=== PATIENT | male | born 1945 | race Caucasian/White ===

== ENCOUNTER 2022-05-29 14:41 | Observation (INO) | payer MEDICARE, OTHER ==
[2022-05-29] MEDS ORDERED: SODIUM CHLORIDE 0.9% 1,000 ML IV STA (14:51)
--- NOTE | 2022-05-29 15:11 | ED ---
Syncope HPI - General Chief Complaint: Syncope Stated Complaint: FAll Time Seen by Provider: 05/29/22 14:45 Source: patient, EMS, RN notes reviewed Mode of arrival: EMS Limitations: no limitations - History of Present Illness Initial Comments: This is a 77-year-old male who presents to the emergency department for a syncopal episode. He was sitting at the table drinking coffee with his family, and next thing he knew he was on the ground. Unsure how long he was unconscious. He is unsure if he hit his head, however he is on Eliquis for atrial fibrillation. He also had a stent placed in the LAD in 2013 which was done at [facility]. His glue maker is Dr. Hogan at [facility]. Denies any symptoms before or after the fall. Not currently in any pain and he feels like his normal self. Denies any fevers, chills, sore throat, cough, dyspnea, chest pain, palpitations, abdominal pain, nausea, vomiting, diarrhea, back pain, or headaches. MD Complaint: loss of consciousness Prodromal Symptoms: none Witnessed: yes - by bystander - Related Data Home Medications Medication Instructions Recorded Confirmed Alpha Lipoic Acid 50 mg PO DAILY 05/29/22 05/29/22 Apixaban [Eliquis] 5 mg PO BID 05/29/22 05/29/22 Atorvastatin Calcium [Lipitor] 80 mg PO HS 05/29/22 05/29/22 Cholecalciferol [Vitamin D3 (25 25 mcg PO DAILY 05/29/22 05/29/22 Mcg = 1000 Iu)] Cyanocobalamin (Vitamin B-12) 1,000 mcg PO DAILY 05/29/22 05/29/22 [Vitamin B-12] Empagliflozin [Jardiance] 10 mg PO DAILY 05/29/22 05/29/22 Ferrous Sulfate [Feosol] 325 mg PO BID 05/29/22 05/29/22 Potassium Chloride ER [K-Dur 10] 10 meq PO DAILY 05/29/22 05/29/22 Tamsulosin HCl [Flomax] 0.4 mg PO DAILY 05/29/22 05/29/22 glipiZIDE [Glucotrol] 5 mg PO DAILY 05/29/22 05/29/22 hydroCHLOROthiazide [Hydrodiuril] 25 mg PO DAILY 05/29/22 05/29/22 lisinopriL [Zestril] 40 mg PO DAILY 05/29/22 05/29/22 metFORMIN HCL [Glucophage] 1,000 mg PO BID 05/29/22 05/29/22 Allergies Allergy/AdvReac Type Severity Reaction Status Date / Time No Known Allergies Allergy Verified 05/29/22 17:27 Review of Systems ROS Statement: Those systems with pertinent positive or pertinent negative responses have been documented in the HPI. ROS Other: All systems not noted in ROS Statement are negative. Past Medical History Past Medical History: Atrial Fibrillation, Heart Failure, Diabetes Mellitus, Hypertension History of Any Multi-Drug Resistant Organisms: None Reported Past Surgical History: No Surgical Hx Reported, Heart Catheterization With Stent Past Psychological History: Anxiety Smoking Status: Never smoker Past Alcohol Use History: Occasional Past Drug Use History: None Reported General Exam Limitations: no limitations General appearance: alert, in no apparent distress Head exam: Present: atraumatic, normocephalic, normal inspection Eye exam: Present: normal appearance, PERRL, EOMI. Absent: scleral icterus, conjunctival injection, periorbital swelling Neck exam: Present: normal inspection. Absent: tenderness, meningismus, lymphadenopathy Respiratory exam: Present: normal lung sounds bilaterally. Absent: respiratory distress, wheezes, rales, rhonchi, stridor Cardiovascular Exam: Present: irregular rhythm. Absent: systolic murmur, diastolic murmur, rubs, gallop, clicks Neurological exam: Present: alert, oriented X3, CN II-XII intact Psychiatric exam: Present: normal affect, normal mood Skin exam: Present: warm, dry, intact, normal color. Absent: rash Course Vital Signs 05/29/22 05/29/22 14:58 17:27 Temperature 98.2 F Pulse Rate 61 61 Respiratory 18 18 Rate Blood Pressure 148/77 157/87 O2 Sat by Pulse 99 99 Oximetry EKG Findings - EKG Comments: EKG Findings:: Atrial fibrillation with slow ventricular response. Right bundle-branch block. Ventricular rate 52 bpm, QRS duration 149 ms, QTC 451 ms. Medical Decision Making - Medical Decision Making This is a 77-year-old male who presents to the emergency department for a syncopal episode. CT scan of the brain and cervical spine were obtained, revealing no acute irregularities. Chest x-ray reveals no acute cardiopulmonary process. Lab work was relatively nonactionable, he does have a troponin of 0.014. EKG reveals him to be in atrial fibrillation with slow ventricular response. Dr. Majano evaluated the patient with me and we watched his shelter monitor for a sustained period of time. Patient was noted to have very frequent PVCs with pauses, which we discussed was likely the cause of his syncopal episode. Patient will be admitted to medicine with cardiology consult for further evaluation of his cardiac activity. This case was discussed in detail with the attending ED physician. Presentation, findings, and treatment plan discussed in detail as well. - Lab Data Result diagrams: 05/29/22 15:16 05/29/22 15:16 Lab Results 05/29/22 05/29/22 05/29/22 Range/Units 15:16 15:16 15:16 WBC 8.1 (3.8-10.6) k/uL RBC 5.74 (4.30-5.90) m/uL Hgb 11.8 L (13.0-17.5) gm/dL Hct 39.1 (39.0-53.0) % MCV 68.1 L (80.0-100.0) fL MCH 20.6 L (25.0-35.0) pg MCHC 30.3 L (31.0-37.0) g/dL RDW 18.1 H (11.5-15.5) % Plt Count 210 (150-450) k/uL MPV 9.3 Neutrophils % 82 % Lymphocytes % 10 % Monocytes % 5 % Eosinophils % 1 % Basophils % 1 % Neutrophils # 6.6 (1.3-7.7) k/uL Lymphocytes # 0.8 L (1.0-4.8) k/uL Monocytes # 0.4 (0-1.0) k/uL Eosinophils # 0.1 (0-0.7) k/uL Basophils # 0.1 (0-0.2) k/uL Hypochromasia Marked Anisocytosis Slight Microcytosis Marked PT 11.7 (9.0-12.0) sec INR 1.1 (<1.2) APTT 24.7 (22.0-30.0) sec Sodium 139 (137-145) mmol/L Potassium 4.1 (3.5-5.1) mmol/L Chloride 103 (98-107) mmol/L Carbon Dioxide 22 (22-30) mmol/L Anion Gap 14 mmol/L BUN 23 H (9-20) mg/dL Creatinine 0.82 (0.66-1.25) mg/dL Est GFR (CKD-EPI)AfAm >90 (>60 ml/min/1.73 sqM) Est GFR (CKD-EPI)NonAf 87 (>60 ml/min/1.73 sqM) Glucose 160 H (74-99) mg/dL Calcium 9.1 (8.4-10.2) mg/dL Magnesium 1.9 (1.6-2.3) mg/dL Total Bilirubin 1.1 (0.2-1.3) mg/dL AST 36 (17-59) U/L ALT 23 (4-49) U/L Alkaline Phosphatase 82 (38-126) U/L Troponin I (0.000-0.034) ng/mL Total Protein 7.8 (6.3-8.2) g/dL Albumin 4.5 (3.5-5.0) g/dL Urine Color Urine Appearance (Clear) Urine pH (5.0-8.0) Ur Specific [place] (1.001-1.035) Urine Protein (Negative) Urine Glucose (UA) (Negative) Urine Ketones (Negative) Urine Blood (Negative) Urine Nitrite (Negative) Urine Bilirubin (Negative) Urine Urobilinogen (<2.0) mg/dL Ur Leukocyte Esterase (Negative) Urine RBC (0-5) /hpf Urine WBC (0-5) /hpf Ur Squamous Epith Cells (0-4) /hpf Amorphous Sediment (None) /hpf Hyaline Casts (0-2) /lpf Urine Mucus (None) /hpf 05/29/22 05/29/22 Range/Units 15:16 17:10 WBC (3.8-10.6) k/uL RBC (4.30-5.90) m/uL Hgb (13.0-17.5) gm/dL Hct (39.0-53.0) % MCV (80.0-100.0) fL MCH (25.0-35.0) pg MCHC (31.0-37.0) g/dL RDW (11.5-15.5) % Plt Count (150-450) k/uL MPV Neutrophils % % Lymphocytes % % Monocytes % % Eosinophils % % Basophils % % Neutrophils # (1.3-7.7) k/uL Lymphocytes # (1.0-4.8) k/uL Monocytes # (0-1.0) k/uL Eosinophils # (0-0.7) k/uL Basophils # (0-0.2) k/uL Hypochromasia Anisocytosis Microcytosis PT (9.0-12.0) sec INR (<1.2) APTT (22.0-30.0) sec Sodium (137-145) mmol/L Potassium (3.5-5.1) mmol/L Chloride (98-107) mmol/L Carbon Dioxide (22-30) mmol/L Anion Gap mmol/L BUN (9-20) mg/dL Creatinine (0.66-1.25) mg/dL Est GFR (CKD-EPI)AfAm (>60 ml/min/1.73 sqM) Est GFR (CKD-EPI)NonAf (>60 ml/min/1.73 sqM) Glucose (74-99) mg/dL Calcium (8.4-10.2) mg/dL Magnesium (1.6-2.3) mg/dL Total Bilirubin (0.2-1.3) mg/dL AST (17-59) U/L ALT (4-49) U/L Alkaline Phosphatase (38-126) U/L Troponin I 0.014 (0.000-0.034) ng/mL Total Protein (6.3-8.2) g/dL Albumin (3.5-5.0) g/dL Urine Color Yellow Urine Appearance Cloudy (Clear) Urine pH 6.0 (5.0-8.0) Ur Specific [place] 1.017 (1.001-1.035) Urine Protein Negative (Negative) Urine Glucose (UA) 4+ H (Negative) Urine Ketones Negative (Negative) Urine Blood Negative (Negative) Urine Nitrite Positive (Negative) Urine Bilirubin Negative (Negative) Urine Urobilinogen <2.0 (<2.0) mg/dL Ur Leukocyte Esterase Trace H (Negative) Urine RBC 2 (0-5) /hpf Urine WBC 10 H (0-5) /hpf Ur Squamous Epith Cells <1 (0-4) /hpf Amorphous Sediment Rare H (None) /hpf Hyaline Casts 7 H (0-2) /lpf Urine Mucus Rare H (None) /hpf - Radiology Data Radiology results: report reviewed, image reviewed Disposition Clinical Impression: Syncope, Atrial fibrillation with slow ventricular response, PVC (premature ventricular contraction) Disposition: ADMITTED IP TO THIS HOSP Referrals: Alejandra Esteves MD [Primary Care Provider] - 1-2 days
[2022-05-29 15:34] LABS: Anisocytosis Slight; Basophils # (A) 0.1 k/uL (0-0.2); Basophils % (A) 1 %; Eosinophils # (A) 0.1 k/uL (0-0.7); Eosinophils % (A) 1 %; HCT 39.1 % (39.0-53.0); HGB 11.8 gm/dL (13.0-17.5); Hypochromasia Marked; Lymphocytes # (A) 0.8 k/uL (1.0-4.8); Lymphocytes % (A) 10 %; MCH 20.6 pg (25.0-35.0); MCHC 30.3 g/dL (31.0-37.0); MCV 68.1 fL (80.0-100.0); Mean Platelet Volume 9.3; Microcytosis Marked; Monocytes # (A) 0.4 k/uL (0-1.0); Monocytes % (A) 5 %; Neutrophils # (A) 6.6 k/uL (1.3-7.7); Neutrophils % (A) 82 %; Platelet Count 210 k/uL (150-450); RBC 5.74 m/uL (4.30-5.90); RDW 18.1 % (11.5-15.5); WBC 8.1 k/uL (3.8-10.6)
[2022-05-29 15:47] LABS: ALT 23 U/L (4-49); AST 36 U/L (17-59); African American GFR (CKD) >90 (>60 ml/min/1.73 sqM); Albumin 4.5 g/dL (3.5-5.0); Alkaline Phosphatase 82 U/L (38-126); Anion Gap 14 mmol/L; Blood Urea Nitrogen 23 mg/dL (9-20); Calcium 9.1 mg/dL (8.4-10.2); Carbon Dioxide 22 mmol/L (22-30); Chloride 103 mmol/L (98-107); Glucose 160 mg/dL (74-99); INR 1.1 (<1.2); Magnesium 1.9 mg/dL (1.6-2.3); Non-African American GFR(CKD) 87 (>60 ml/min/1.73 sqM); Partial Thromboplastin Time 24.7 sec (22.0-30.0); Potassium 4.1 mmol/L (3.5-5.1); Prothrombin Time 11.7 sec (9.0-12.0); Sodium 139 mmol/L (137-145); Total Bilirubin 1.1 mg/dL (0.2-1.3); Total Protein 7.8 g/dL (6.3-8.2)
--- NOTE | 2022-05-29 16:08 | CT ---
EXAMINATION TYPE: CT brain kristi conway con DATE OF EXAM: 05/29/2022 COMPARISON: None HISTORY: Syncope with fall CT DLP: 1551 mGycm Automated exposure control for dose reduction was used. TECHNIQUE: CT scan of the head and cervical spine are performed without contrast. FINDINGS: There is no acute intracranial hemorrhage, mass effect, or midline shift identified. Ther e is generalized moderate degenerative change with extensive low attenuation in the white matter whic h is not cystic but most typical remote white matter ischemia. Calvarium grossly intact. Carotid coco ry calcifications are incidentally noted soft tissues. The globes are intact and the visualized sinus es are clear. There is severe multilevel degenerative disc disease and posterior spondylosis with facet arthropathy and multilevel foraminal encroachment and canal stenosis suspected. Assessment spinal canal nondiagn ostic due to resolution and artifact. Grossly odontoid intact. IMPRESSION: 1. There is no acute fracture or dislocation evident in the cervical spine. Severe multilevel degener ative disc disease with posterior spondylosis and facet arthropathy. Multilevel foraminal encroachmen t and canal stenosis suspected. Recommend follow-up MRI 2. No acute intracranial hemorrhage, mass effect, or midline shift is seen. Degenerative and diffuse nonspecific white matter changes most typical remote microvascular ischemia.
--- NOTE | 2022-05-29 16:08 | XR ---
EXAMINATION TYPE: XR chest 2V DATE OF EXAM: 05/29/2022 COMPARISON: NONE HISTORY: Syncope TECHNIQUE: Frontal and lateral views of the chest are obtained. FINDINGS: There is no focal air space opacity, pleural effusion, or pneumothorax seen. The cardiac silhouette size is within normal limits. There are overlying leads. The osseous structures are intac t. The may be a spinal curvature. Aorta is dense. IMPRESSION: No acute cardiopulmonary process.
[2022-05-29 17:37] LABS: Amorphous Sediment,Urine Rare /hpf; Appearance,Urine Cloudy (Clear); Bilirubin,Urine Negative (Negative); Blood,Urine Negative (Negative); Color,Urine Yellow; Glucose,Urine (UA) 4+ (Negative); Hyaline Casts,Urine 7 /lpf (0-2); Ketones,Urine Negative (Negative); Leukocyte Esterase,Urine Trace (Negative); Mucus,Urine Rare /hpf; Nitrite,Urine Positive (Negative); Protein,Urine Negative (Negative); RBC,Urine 2 /hpf (0-5); Specific Gravity,Urine 1.017 (1.001-1.035); Squamous Epithelial Cell,Urine <1 /hpf (0-4); Urobilinogen,Urine <2.0 mg/dL (<2.0); WBC,Urine 10 /hpf (0-5)
[2022-05-29] MEDS ORDERED: ACETAMINOPHEN TAB 325 MG TAB PO PRN (17:40)
[2022-05-29] MEDS ORDERED: NALOXONE 0.4 MG/ML 1 ML VIAL IV PRN (17:40)
[2022-05-29] MEDS ORDERED: HYDROcodone/APAP 5-325MG 1 EACH TAB PO PRN (17:40)
[2022-05-29] MEDS ORDERED: ONDANSETRON 4 MG/2 ML VIAL IVP PRN (17:40)
[2022-05-29] MEDS: ATORVASTATIN 80 MG TAB PO SCH (20:46)
[2022-05-29] MEDS: FERROUS SULFATE 325 MG TAB PO SCH (20:46)
[2022-05-29] MEDS: APIXABAN 5 MG TAB PO SCH (20:46)
--- NOTE | 2022-05-29 23:41 | P.HPIM ---
History of Present Illness H&P Date: 05/29/22 The patient is a 77-year-old male with a PMH of A. fib on Eliquis, type II DM, hypertension, hyperlipidemia, and BPH who presented to the emergency room after an episode of syncope at home. The patient reports that he was on his dining table sitting with his family when he suddenly lost consciousness without any warning symptoms. THEREFORE his brother and [id number] noticed that she had lost consciousness and subsequently laid him down gently on the ground. The patient was reportedly unconscious for a few minutes, and was pale upon arrival of EMS. The patient denied any prior history of such symptoms. Denied experiencing any prodrome of chest discomfort, shortness of breath, or palpitations. Denied shaking movements, urinary incontinence, or tongue biting. Reported feeling somewhat tired upon regaining consciousness. Reports that he is back at his baseline at the time of interview. Denied experiencing fever, chills, cough, nausea, vomiting, abdominal pain, diarrhea. Head and cervical spine CT in the emergency room revealed multilevel foraminal encroachment and canal stenosis with a follow-up MRI recommended. Chest x-ray was unremarkable. EKG revealed A. fib with SVR at 52 bpm with a right bundle branch block. Laboratory evaluation was remarkable for troponin 0.014. The patient was noted to have pauses and frequent PVCs on telemetric monitoring in the emergency room. Review of systems: Pertinent positives and negatives as discussed in HPI, a complete review of systems was performed and all other systems are negative. Physical examination: General: non toxic, no distress, appears at stated age, overweight Derm: no unusual rashes/lesions, warm Head: atraumatic, normocephalic, symmetric Eyes: EOMI, no lid lag, anicteric sclera, pupils equal round reactive to light ENT: Nose and ears atraumatic Neck: No cervical lymphadenopathy, trachea midline, supple Mouth: no lip lesion, mucus membranes moist Cardiovascular: S1S2 reg, no murmur, positive dorsalis pedis pulse bilateral, no edema Lungs: CTA bilateral, no rhonchi, no rales, no accessory muscle use Abdominal: soft, nontender to palpation, no guarding Ext: muscle strength 5 out of 5 in all 4 extremities grossly, no gross muscle atrophy, no contractures, Neuro: CN II-XI grossly intact, no gross focal neuro deficits Psych: Alert, oriented, appropriate affect Assessment/plan Syncope, suspected cardiogenic in nature with A. fib with SVR and pauses -Echocardiogram -Cardiac monitoring -Cardiology consult -Fall precautions Abnormal C-spine CT scan, with foraminal encroachment -Patient currently denying upper extremity pain or weakness -Outpatient orthopedic surgery follow-up with MRI Type II DM, hypertension, A. fib, hyperlipidemia, BPH -Continue with home meds DVT prophylaxis -Eliquis The patient is admitted with an anticipated less than 2 midnight stay for flip luation of syncope. CODE STATUS: Full Code Discussed with: Patient Anticipated discharge date: In a.m. Anticipated discharge place: Home Past Medical History Past Medical History: Atrial Fibrillation, Heart Failure, Diabetes Mellitus, Hypertension History of Any Multi-Drug Resistant Organisms: None Reported Past Surgical History: No Surgical Hx Reported, Heart Catheterization With Stent Past Psychological History: Anxiety Smoking Status: Never smoker Past Alcohol Use History: Occasional Past Drug Use History: None Reported - Past Family History Mother Family Medical History: Cancer Medications and Allergies Home Medications Medication Instructions Recorded Confirmed Type Alpha Lipoic Acid 50 mg PO DAILY 05/29/22 05/29/22 History Apixaban [Eliquis] 5 mg PO BID 05/29/22 05/29/22 History Atorvastatin Calcium [Lipitor] 80 mg PO HS 05/29/22 05/29/22 History Cholecalciferol [Vitamin D3 (25 25 mcg PO DAILY 05/29/22 05/29/22 History Mcg = 1000 Iu)] Cyanocobalamin (Vitamin B-12) 1,000 mcg PO DAILY 05/29/22 05/29/22 History [Vitamin B-12] Empagliflozin [Jardiance] 10 mg PO DAILY 05/29/22 05/29/22 History Ferrous Sulfate [Feosol] 325 mg PO BID 05/29/22 05/29/22 History Potassium Chloride ER [K-Dur 10] 10 meq PO DAILY 05/29/22 05/29/22 History Tamsulosin HCl [Flomax] 0.4 mg PO DAILY 05/29/22 05/29/22 History glipiZIDE [Glucotrol] 5 mg PO DAILY 05/29/22 05/29/22 History hydroCHLOROthiazide [Hydrodiuril] 25 mg PO DAILY 05/29/22 05/29/22 History lisinopriL [Zestril] 40 mg PO DAILY 05/29/22 05/29/22 History metFORMIN HCL [Glucophage] 1,000 mg PO BID 05/29/22 05/29/22 History Allergies Allergy/AdvReac Type Severity Reaction Status Date / Time No Known Allergies Allergy Verified 05/29/22 17:27 Physical Exam Vitals: Vital Signs Temp Pulse Resp BP Pulse Ox 05/29/22 19:10 66 18 112/80 99 05/29/22 17:27 61 18 157/87 99 05/29/22 14:58 98.2 F 61 18 148/77 99 Intake and Output 05/29/22 05/29/22 05/29/22 06:59 14:59 22:59 Other: Weight 86.183 kg Results CBC & Chem 7: 05/29/22 15:16 05/29/22 15:16 Labs: Abnormal Lab Results - Last 24 Hours (Table) 05/29/22 05/29/22 05/29/22 Range/Units 15:16 15:16 17:10 Hgb 11.8 L (13.0-17.5) gm/dL MCV 68.1 L (80.0-100.0) fL MCH 20.6 L (25.0-35.0) pg MCHC 30.3 L (31.0-37.0) g/dL RDW 18.1 H (11.5-15.5) % Lymphocytes # 0.8 L (1.0-4.8) k/uL BUN 23 H (9-20) mg/dL Glucose 160 H (74-99) mg/dL Urine Glucose (UA) 4+ H (Negative) Ur Leukocyte Esterase Trace H (Negative) Urine WBC 10 H (0-5) /hpf Amorphous Sediment Rare H (None) /hpf Hyaline Casts 7 H (0-2) /lpf Urine Mucus Rare H (None) /hpf
[2022-05-30 06:58] LABS: Glucose,Whole Blood 121 mg/dL (70-110)
--- NOTE | 2022-05-30 09:08 | P.CRDCN ---
History of Present Illness Consult date: 05/30/22 History of present illness: HISTORY OF PRESENT ILLNESS: This is a 77-year-old male with a past medical history significant for coronary artery disease with previous stenting at [facility] in 2013, atrial fibrillation, diabetes, hypertension, and hyperlipidemia. Patient follows with Dr. Ray in [place]. We have been asked to see the patient in consultation for syncope. Patient examined at the bedside. Patient states yesterday he was sitting around his table visiting with family that is in from out of state. He states the next thing he knows he was on the floor. He does report that he broke out in a sweat. He denied having any chest pain or pressure. Denied any shortness of breath. Denied any dizziness or lightheadedness. Patient reports that he was recently started on some new medications for diabetes. The patient's blood sugar was within normal limits when he arrived to the hospital, although it is unsure what his blood sugar was when EMS brought him in. EKG on admission reveals atrial fibrillation with controlled ventricular rate. Heart rate is on the lower side in the 50s. The patient states he used to be on metoprolol but this was discontinued a couple years ago by his substance abuse therapist. * EKG reveals atrial fibrillation with slow ventricular rate * Chest xray negative for acute process * Laboratory data: WBC 8.1. Hemoglobin 11.8. Platelet count 210. Sodium 139. Potassium 4.1. BUN 23. Creatinine 0.82. Troponin negative 2. * Current home cardiac medications include Eliquis 5mg BID, Jardiance 10mg d aily, hydrochlorothiazide 25 mg daily, lisinopril 40 mg daily, Lipitor 80 mg at night REVIEW OF SYSTEMS: At the time of my exam: CONSTITUTIONAL: Denies fever or chills. HEENT: Denies blurred vision, vision changes, or eye pain. Denies hemoptysis CARDIOVASCULAR: Denies chest pain. Denies orthopnea. Denies PND. Denies palpitations RESPIRATORY: Denies shortness of breath. GASTROINTESTINAL: Denies abdominal pain. Denies nausea or vomiting. HEMATOLOGIC: Denies bleeding disorders. GENITOURINARY: Denies any blood in urine. SKIN: Denies pruitis. Denies rash. PHYSICAL EXAM: VITAL SIGNS: Reviewed. GENERAL: Well-developed in no acute distress. HEENT: Head is normocephalic. Pupils are equal, round. Sclerae anicteric. Mucous membranes of the mouth are moist. Neck supple. No JVD or thyromegaly LUNGS: Respirations even and unlabored. Lungs essentially clear to auscultation bilaterally. HEART: Irregular rate and rhythm. S1 and S2 heard. ABDOMEN: Soft. Nondistended. Nontender. EXTREMITIES: Normal range of motion. No clubbing or cyanosis. Peripheral pulses intact. No lower extremity edema NEUROLOGIC: Awake and alert. Oriented x 3. ASSESSMENT: Syncope, rule out cardiac etiology versus hypoglycemia with new addition of diabetes medications per patient Atrial fibrillation with slow ventricular rate, unknown if persistent or paroxysmal Coronary artery disease with previous stenting, details unknown Hypertension Hyperlipidemia Diabetes PLAN: Obtain 2D echo to assess cardiac structure and function Resume home cardiac medications Avoid AV feroz blocking agents Check TSH Begin telemetry monitoring to assess for any significant arrhythmias or pauses to account for patient's symptoms. So far, heart rate in the 50s and no indication for PPM at this time. Patient to be discharged with 30 day event monitor Patient to follow up with his primary substance abuse therapist, Dr. Ray Further recommendations pending patient course Nurse practitioner note has been reviewed by physician. Signing provider agrees with the documented findings, assessment, and plan of care. Past Medical History Past Medical History: Atrial Fibrillation, Heart Failure, Diabetes Mellitus, Hypertension History of Any Multi-Drug Resistant Organisms: None Reported Past Surgical History: No Surgical Hx Reported, Heart Catheterization With Stent Date of Last Stent Placement:: 2013 Past Psychological History: Anxiety Smoking Status: Never smoker Past Alcohol Use History: Occasional Past Drug Use History: None Reported - Past Family History Mother Family Medical History: Cancer Medications and Allergies Home Medications Medication Instructions Recorded Confirmed Type Alpha Lipoic Acid 50 mg PO DAILY 05/29/22 05/29/22 History Apixaban [Eliquis] 5 mg PO BID 05/29/22 05/29/22 History Atorvastatin Calcium [Lipitor] 80 mg PO HS 05/29/22 05/29/22 History Cholecalciferol [Vitamin D3 (25 25 mcg PO DAILY 05/29/22 05/29/22 History Mcg = 1000 Iu)] Cyanocobalamin (Vitamin B-12) 1,000 mcg PO DAILY 05/29/22 05/29/22 History [Vitamin B-12] Empagliflozin [Jardiance] 10 mg PO DAILY 05/29/22 05/29/22 History Ferrous Sulfate [Feosol] 325 mg PO BID 05/29/22 05/29/22 History Potassium Chloride ER [K-Dur 10] 10 meq PO DAILY 05/29/22 05/29/22 History Tamsulosin HCl [Flomax] 0.4 mg PO DAILY 05/29/22 05/29/22 History glipiZIDE [Glucotrol] 5 mg PO DAILY 05/29/22 05/29/22 History hydroCHLOROthiazide [Hydrodiuril] 25 mg PO DAILY 05/29/22 05/29/22 History lisinopriL [Zestril] 40 mg PO DAILY 05/29/22 05/29/22 History metFORMIN HCL [Glucophage] 1,000 mg PO BID 05/29/22 05/29/22 History Allergies Allergy/AdvReac Type Severity Reaction Status Date / Time No Known Allergies Allergy Verified 05/29/22 17:27 Physical Exam Vitals: Vital Signs Temp Pulse Pulse Resp BP BP Pulse Ox 05/30/22 06:25 98.0 F 57 L 19 165/88 99 05/30/22 04:36 52 L 52 L 18 135/63 94 L 05/29/22 19:10 66 18 112/80 99 05/29/22 17:27 61 18 157/87 99 05/29/22 14:58 98.2 F 61 18 148/77 99 Intake and Output 05/29/22 05/30/22 05/30/22 22:59 06:59 14:59 Other: Voiding Method Toilet # Voids 1 Weight 86.183 kg Results 05/29/22 15:16 05/29/22 15:16 Cardiac Enzymes 05/29/22 05/29/22 05/29/22 Range/Units 15:16 15:16 19:15 AST 36 (17-59) U/L Troponin I 0.014 <0.012 (0.000-0.034) ng/mL Coagulation 05/29/22 Range/Units 15:16 PT 11.7 (9.0-12.0) sec APTT 24.7 (22.0-30.0) sec CBC 05/29/22 Range/Units 15:16 WBC 8.1 (3.8-10.6) k/uL RBC 5.74 (4.30-5.90) m/uL Hgb 11.8 L (13.0-17.5) gm/dL Hct 39.1 (39.0-53.0) % Plt Count 210 (150-450) k/uL Comprehensive Metabolic Panel 05/29/22 Range/Units 15:16 Sodium 139 (137-145) mmol/L Potassium 4.1 (3.5-5.1) mmol/L Chloride 103 (98-107) mmol/L Carbon Dioxide 22 (22-30) mmol/L BUN 23 H (9-20) mg/dL Creatinine 0.82 (0.66-1.25) mg/dL Glucose 160 H (74-99) mg/dL Calcium 9.1 (8.4-10.2) mg/dL AST 36 (17-59) U/L ALT 23 (4-49) U/L Alkaline Phosphatase 82 (38-126) U/L Total Protein 7.8 (6.3-8.2) g/dL Albumin 4.5 (3.5-5.0) g/dL Current Medications Generic Name Dose Route Start Last Admin Trade Name Freq PRN Reason Stop Dose Admin Acetaminophen 650 mg 05/29/22 17:40 Acetaminophen Tab 325 Mg Tab PO Q6HR PRN Mild Pain or Fever > 100.5 Hydrocodone Bitart/Acetaminophen 1 each 05/29/22 17:40 Hydrocodone/Apap 5-325mg 1 Each Tab PO Q4HR PRN Moderate Pain (Scale 4 to 6) Apixaban 5 mg 05/29/22 21:00 05/29/22 20:46 Apixaban 5 Mg Tab PO 5 mg BID SHANIA Administration Protocol Atorvastatin Calcium 80 mg 05/29/22 21:00 05/29/22 20:46 Atorvastatin 80 Mg Tab PO 80 mg HS SHANIA Administration Cholecalciferol 25 mcg 05/30/22 09:00 Cholecalciferol 25 Mcg (1000 Iu) Tablet PO DAILY SHANIA Ferrous Sulfate 325 mg 05/29/22 21:00 05/29/22 20:46 Ferrous Sulfate 325 Mg Tab PO 325 mg BID SHANIA Administration Hydrochlorothiazide 25 mg 05/30/22 09:00 Hydrochlorothiazide 25 Mg Tab PO DAILY [facility] Lisinopril 40 mg 05/30/22 09:00 Lisinopril 20 Mg Tab PO DAILY [facility] Naloxone HCl 0.2 mg 05/29/22 17:40 Naloxone 0.4 Mg/Ml 1 Ml Vial IV Q2M PRN Opioid Reversal Non-Formulary Medication 50 mg 05/30/22 09:00 Alpha Lipoic Acid [Alpha Lipoic Acid] PO DAILY SHANIA Ondansetron HCl 4 mg 05/29/22 17:40 Ondansetron 4 Mg/2 Ml Vial IVP Q8HR PRN Nausea And Vomiting Potassium Chloride 10 meq 05/30/22 09:00 Potassium Chloride Er 10 Meq Tab.Er.Prt PO DAILY SHANIA Tamsulosin HCl 0.4 mg 05/30/22 09:00 Tamsulosin 0.4 Mg Cap.Er.24h PO DAILY SHANIA Intake and Output 05/29/22 05/30/22 05/30/22 22:59 06:59 14:59 Other: Voiding Method Toilet # Voids 1 Weight 86.183 kg 05/29/22 15:16 05/29/22 15:16
[2022-05-30] MEDS: NON FORMULARY DRUG (Alpha Lipoic Acid [Alpha Lipoic Acid] 50 MG Tablet) PO SCH (09:09)
[2022-05-30] MEDS: lisinopriL 20 MG TAB PO SCH (09:21)
[2022-05-30] MEDS: CHOLECALCIFEROL 25 MCG (1000 IU) TABLET PO SCH (09:21)
[2022-05-30] MEDS: FERROUS SULFATE 325 MG TAB PO SCH ×2 (09:22→20:09)
[2022-05-30] MEDS: POTASSIUM CHLORIDE ER 10 MEQ TAB.ER.PRT PO SCH (09:22)
[2022-05-30] MEDS: TAMSULOSIN 0.4 MG CAP.ER.24H PO SCH (09:22)
[2022-05-30] MEDS: APIXABAN 5 MG TAB PO SCH ×2 (09:22→20:09)
[2022-05-30] MEDS ORDERED: DEXTROSE 50% SYRINGE 50 ML IVP PRN ×2 (09:26)
[2022-05-30] MEDS: hydroCHLOROthiazide 25 MG TAB PO SCH (10:53)
[2022-05-30 12:42] LABS: Glucose,Whole Blood 143 mg/dL (70-110)
[2022-05-30] MEDS: INSULIN ASPART (NovoLOG) 100 UNIT/ML VIAL SQ SCH ×3 (12:49→20:09)
--- NOTE | 2022-05-30 14:27 | P.PN ---
Subjective Progress Note Date: 05/30/22 Principal diagnosis: syncope Hospital Course: 77-year-old male with past medical history of atrial fibrillation on and evaluation, hypertension, diabetes, dyslipidemia, BPH presented with an episode of syncope at home. Head and cervical spine CT revealed multilevel foraminal encroachment and canal stenosis with a follow-up MRI recommended. Chest x-ray was unremarkable. EKG showed atrial fibrillation with SVR and right bundle branch block. Troponin were negative. Patient was also noted to have pauses on telemetry. Patient to be evaluated by cardiology. Subjective: Patient seen and examined at bedside. No acute events overnight. He denies any chest pain, shortness of breath, palpitations, lightheadedness, abdominal pain, nausea, vomiting, diarrhea or constipation, , or urinary complaints. Pertinent positives and negatives as discussed above, a complete review of systems was performed and all other systems are negative. Vitals Signs Reviewed. General: nontoxic, no distress, appears at stated age Derm: warm, dry Head: atraumatic, normocephalic, symmetric Eyes: EOMI, no lid lag, anicteric sclera Mouth: no lip lesion, mucus membranes moist Cardiovascular: S1S2 reg, no murmur Lungs: CTA bilateral, no rhonchi, no rales , no accessory muscle use Abdominal: soft, nontender to palpation, no guarding, no appreciable organomegaly Ext: no gross muscle atrophy, no edema, no contractures Neuro: CN II-XI grossly intact, no focal neuro deficits Psych: Alert, oriented, appropriate affect Assessment and Plan: Syncope, suspected cardiogenic A. fib with SVR -Cardiology consult -Telemetry -Echo pending -Avoid AV feroz blockers -TSH normal -Will likely need a 30 day event monitor at discharge per cardiology Abnormal C-spine computed tomography scan, with foraminal encroachment -Patient denying any pain or weakness -Outpatient orthopedic surgery follow-up with MRI Chronic medical problems: Type 2 diabetes Hypertension Atrial fibrillation Dyslipidemia BPH -Continue home medications DVT ppx: eliquis Code status: full code Anticipated discharge place: Home Anticipated discharge time: Likely tomorrow Objective - Vital Signs Vital signs: Vital Signs Temp 98.4 F 05/30/22 12:49 Pulse 58 L 05/30/22 12:49 Resp 16 05/30/22 12:49 BP 132/78 05/30/22 12:49 Pulse Ox 97 05/30/22 12:49 FiO2 Intake & Output 05/29/22 05/30/22 05/30/22 18:59 06:59 18:59 Intake Total 540 Balance 540 Weight 86.183 kg 86.183 kg Intake: Oral 540 Other: Voiding Method Toilet Toilet # Voids 1 - Labs CBC & Chem 7: 05/29/22 15:16 05/29/22 15:16 Labs: Abnormal Lab Results - Last 24 Hours (Table) 05/29/22 05/29/22 05/29/22 Range/Units 15:16 15:16 17:10 Hgb 11.8 L (13.0-17.5) gm/dL MCV 68.1 L (80.0-100.0) fL MCH 20.6 L (25.0-35.0) pg MCHC 30.3 L (31.0-37.0) g/dL RDW 18.1 H (11.5-15.5) % Lymphocytes # 0.8 L (1.0-4.8) k/uL BUN 23 H (9-20) mg/dL Glucose 160 H (74-99) mg/dL POC Glucose (mg/dL) (70-110) mg/dL Urine Glucose (UA) 4+ H (Negative) Ur Leukocyte Esterase Trace H (Negative) Urine WBC 10 H (0-5) /hpf Amorphous Sediment Rare H (None) /hpf Hyaline Casts 7 H (0-2) /lpf Urine Mucus Rare H (None) /hpf 05/30/22 05/30/22 Range/Units 06:56 12:40 Hgb (13.0-17.5) gm/dL MCV (80.0-100.0) fL MCH (25.0-35.0) pg MCHC (31.0-37.0) g/dL RDW (11.5-15.5) % Lymphocytes # (1.0-4.8) k/uL BUN (9-20) mg/dL Glucose (74-99) mg/dL POC Glucose (mg/dL) 121 H 143 H (70-110) mg/dL Urine Glucose (UA) (Negative) Ur Leukocyte Esterase (Negative) Urine WBC (0-5) /hpf Amorphous Sediment (None) /hpf Hyaline Casts (0-2) /lpf Urine Mucus (None) /hpf
[2022-05-30 16:39] LABS: Glucose,Whole Blood 135 mg/dL (70-110)
[2022-05-30 19:48] LABS: Glucose,Whole Blood 173 mg/dL (70-110)
[2022-05-30] MEDS: ATORVASTATIN 80 MG TAB PO SCH (20:09)
[2022-05-31 07:45] LABS: Glucose,Whole Blood 140 mg/dL (70-110)
[2022-05-31] MEDS: POTASSIUM CHLORIDE ER 10 MEQ TAB.ER.PRT PO SCH (08:58)
[2022-05-31] MEDS: APIXABAN 5 MG TAB PO SCH (08:58)
[2022-05-31] MEDS: INSULIN ASPART (NovoLOG) 100 UNIT/ML VIAL SQ SCH (08:58)
[2022-05-31] MEDS: TAMSULOSIN 0.4 MG CAP.ER.24H PO SCH (08:59)
[2022-05-31] MEDS: FERROUS SULFATE 325 MG TAB PO SCH (08:59)
[2022-05-31] MEDS: CHOLECALCIFEROL 25 MCG (1000 IU) TABLET PO SCH (08:59)
[2022-05-31] MEDS: lisinopriL 20 MG TAB PO SCH (08:59)
[2022-05-31] MEDS: hydroCHLOROthiazide 25 MG TAB PO SCH (08:59)
[2022-05-31] MEDS: NON FORMULARY DRUG (Alpha Lipoic Acid [Alpha Lipoic Acid] 50 MG Tablet) PO SCH (09:00)
--- NOTE | 2022-05-31 10:19 | P.PN ---
Subjective Progress Note Date: 05/31/22 HISTORY OF PRESENT ILLNESS: This is a 77-year-old male with a past medical history significant for coronary artery disease with previous stenting at [facility] in 2013, atrial f ibrillation, diabetes, hypertension, and hyperlipidemia. Patient follows with Dr. Ray in [place]. We have been asked to see the patient in consultation for syncope. Patient examined at the bedside. Patient states yesterday he was sitting around his table visiting with family that is in from out of state. He states the next thing he knows he was on the floor. He does report that he broke out in a sweat. He denied having any chest pain or pressure. Denied any shortness of breath. Denied any dizziness or lightheadedness. Patient reports that he was recently started on some new medications for diabetes. The patient's blood sugar was within normal limits when he arrived to the hospital, although it is unsure what his blood sugar was when EMS brought him in. EKG on admission reveals atrial fibrillation with controlled ventricular rate. Heart rate is on the lower side in the 50s. 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 * EKG reveals atrial fibrillation with slow ventricular rate * Chest xray negative for acute process * Laboratory data: WBC 8.1. Hemoglobin 11.8. Platelet count 210. Sodium 139. Potassium 4.1. BUN 23. Creatinine 0.82. Troponin negative 2. * Current home cardiac medications include Eliquis 5mg BID, Jardiance 10mg daily, hydrochlorothiazide 25 mg daily, lisinopril 40 mg daily, Lipitor 80 mg at night 05/31/2022 Patient examined this morning at the bedside. Patient denies chest pain or pressure. Denies SOB. Denies dizziness or lightheadedness. Telemetry monitoring reveals atrial fibrillation with slow ventricular rate. Patient having pauses of 23 seconds overnight. No further episodes of syncope. TSH within normal limits. PHYSICAL EXAM: VITAL SIGNS: Reviewed. GENERAL: Well-developed in no acute distress. HEENT: Head is normocephalic. Pupils are equal, round. Sclerae anicteric. Mucous membranes of the mouth are moist. Neck supple. No JVD or thyromegaly LUNGS: Respirations even and unlabored. Lungs essentially clear to auscultation bilaterally. HEART: Irregular rate and rhythm. S1 and S2 heard. ABDOMEN: Soft. Nondistended. Nontender. EXTREMITIES: Normal range of motion. No clubbing or cyanosis. Peripheral pulses intact. No lower extremity edema NEUROLOGIC: Awake and alert. Oriented x 3. ASSESSMENT: Syncope, rule out cardiac etiology versus hypoglycemia with new addition of diabetes medications per patient Atrial fibrillation with slow ventricular rate, unknown if persistent or paro xysmal Coronary artery disease with previous stenting, details unknown Hypertension Hyperlipidemia Diabetes PLAN: 2-D echo ordered. Await results Telemetry does show atrial fibrillation with slow ventricular rate with 2-3 second pauses overnight. However no clear cut indication at this time for pacemaker implantation. Await results from 30 day event monitor. 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 Ray Patient may be discharged home today from a cardiac standpoint Nurse practitioner note has been reviewed by physician. Signing provider agrees with the documented findings, assessment, and plan of care. Objective - Vital Signs Vital signs: Vital Signs Temp 97.8 F 05/31/22 07:00 Pulse 55 L 05/31/22 07:00 Resp 18 05/31/22 07:00 BP 165/91 05/31/22 07:00 Pulse Ox 97 05/31/22 07:00 FiO2 Intake & Output 05/30/22 05/31/22 05/31/22 18:59 06:59 18:59 Intake Total 780 Balance 780 Intake: Oral 780 Other: Voiding Method Toilet Toilet # Voids 2 2 - Labs CBC & Chem 7: 05/29/22 15:16 05/29/22 15:16 Labs: Abnormal Lab Results - Last 24 Hours (Table) 05/29/22 05/30/22 05/30/22 Range/Units 15:16 12:40 16:37 POC Glucose (mg/dL) 143 H 135 H (70-110) mg/dL Hemoglobin A1c 9.7 H (0.0-6.0) % 05/30/22 05/31/22 Range/Units 19:46 07:43 POC Glucose (mg/dL) 173 H 140 H (70-110) mg/dL Hemoglobin A1c (0.0-6.0) %
[2022-05-31 12:17] LABS: Glucose,Whole Blood 150 mg/dL (70-110)
--- NOTE | 2022-05-31 12:54 | CA ---
Transthoracic Echo Report Name: Truman Suh Age: 77 Gender: M : 1945 Exam Date: 05/30/2022 09:24 Exam Location: [place] Echo Ht (in): 67 Wt (lb): 190 Ordering Physician: Ramiro Martin MD Attending/Referring Phys: Manager [employer] Yanni Mckeon RDCS Procedure CPT: Indications: Syncope Cardiac Hx: Technical Quality: Fair Contrast 1: Total Dose (mL): Contrast 2: Total Dose (mL): MEASUREMENTS (Male / Female) Normal Values 2D ECHO LV Diastolic Diameter PLAX 3.9 cm 4.2 - 5.9 / 3.9 - 5.3 cm LV Systolic Diameter PLAX 3.0 cm IVS Diastolic Thickness 1.5 cm 0.6 - 1.0 / 0.6 - 0.9 cm LVPW Diastolic Thickness 1.3 cm 0.6 - 1.0 / 0.6 - 0.9 cm LV Relative Wall Thickness 0.7 RV Internal Dim ED PLAX 4.5 cm LA Volume 89.0 cm??? 18 - 58 / 22 - 52 cm??? M-MODE Aortic Root Diameter MM 3.3 cm LA Systolic Diameter MM 5.3 cm LA Ao Ratio MM 1.6 AV Cusp Separation MM 1.7 cm DOPPLER AV Peak Velocity 168.3 cm/s AV Peak Gradient 11.3 mmHg AI Peak Velocity 493.9 cm/s AI Peak Gradient 97.6 mmHg AI Pressure Half Time 677.6 ms LVOT Peak Velocity 123.7 cm/s LVOT Peak Gradient 6.1 mmHg MV E' Velocity 7.6 cm/s TR Peak Velocity 261.8 cm/s TR Peak Gradient 27.4 mmHg Right Ventricular Systolic Press 32.4 mmHg FINDINGS Left Ventricle Moderately increased left ventricular wall thickness. Normal left ventricular systolic function with no obvious regional wall motion abnormalities. Left ventricular ejection fraction is estimated at 55-60 %. Right Ventricle Moderate right ventricular dilatation. Right ventricular systolic pressure within normal limits. Right Atrium Normal right atrial size. Left Atrium Moderate left atrial dilatation. Mitral Valve Mitral valve thickened. Mild mitral annular calcification. Mild to moderate mitral regurgitation. Aortic Valve Trace to mild aortic regurgitation. Aortic valve sclerosis. Tricuspid Valve Mild tricuspid regurgitation. Pulmonic Valve Trace pulmonic regurgitation. Pericardium No pericardial effusion. Aorta Aortic root and proximal ascending aorta not well visualized. CONCLUSIONS Normal left ventricular EF 55-60% Moderate increased left ventricular wall thickness Moderate left atrial dilation Mild to moderate mitral regurgitation Mild tricuspid regurgitation RVSP 32 Previewed by: Dr. Kayode Adams DO (Electronically Signed) Final Date: 31 May 2022 12:53
--- NOTE | 2022-05-31 14:22 | P.DS ---
Providers Date of admission: 05/29/22 17:40 Expected date of discharge: 05/31/22 Attending physician: Galileo Johnson MD Consults: 05/29/22 23:39 Consult Physician Urgent Consulting Provider: Martin Licona Consult Reason/Comments: syncope, pauses, SVR Do you want consulting provider notified?: Yes Primary care physician: Alejandra Esteves MD Hospital Course: Discharge Diagnosis: Syncope Atrial fibrillation with SVR Abnormal C-spine CT, with foraminal encroachment Type 2 diabetes Hypertension Dyslipidemia BPH Hospital Course: 77-year-old male with past medical history of atrial fibrillation on and evaluation, hypertension, diabetes, dyslipidemia, BPH presented with an episode of syncope at home. Head and cervical spine CT revealed multilevel foraminal encroachment and canal stenosis with a follow-up MRI recommended. Chest x-ray was unremarkable. EKG showed atrial fibrillation with SVR and right bundle branch block. Troponin were negative. Patient was also noted to have pauses on telemetry. Patient evaluated by cardiology. Patient to get a 30 day event monitor. 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 Ray. Echo showed LVEF of 55-60%. Patient seen and examined at bedside. Vital signs reviewed and stable. General: nontoxic, no distress, appears at stated age Derm: warm, dry Head: atraumatic, normocephalic, symmetric Eyes: EOMI, no lid lag, anicteric sclera Mouth: no lip lesion, mucus membranes moist Cardiovascular: S1S2 irreg, no murmur Lungs: CTA bilateral, no rhonchi, no rales , no accessory muscle use Abdominal: soft, nontender to palpation, no guarding, no appreciable organomegaly Ext: no gross muscle atrophy, no edema, no contractures Neuro: CN II-XI grossly intact, no focal neuro deficits Psych: Alert, oriented, appropriate affect A total of 33 minutes of time were spent preparing this complex discharge summary. Patient was discharged on 05/31/22 at 13:03. Patient Condition at Discharge: Stable Plan - Discharge Summary New Discharge Prescriptions: Continue Tamsulosin HCl [Flomax] 0.4 mg PO DAILY Potassium Chloride ER [K-Dur 10] 10 meq PO DAILY Ferrous Sulfate [Iron (65 MG Elemental)] 325 mg PO BID Cholecalciferol [Vitamin D3 (25 Mcg = 1000 Iu)] 25 mcg PO DAILY hydroCHLOROthiazide [Hydrodiuril] 25 mg PO DAILY glipiZIDE [Glucotrol] 5 mg PO DAILY Empagliflozin [Jardiance] 10 mg PO DAILY Apixaban [Eliquis] 5 mg PO BID Atorvastatin Calcium [Lipitor] 80 mg PO HS Cyanocobalamin (Vitamin B-12) [Vitamin B-12] 1,000 mcg PO DAILY Alpha Lipoic Acid 50 mg PO DAILY metFORMIN HCL [Glucophage] 1,000 mg PO BID lisinopriL [Zestril] 40 mg PO DAILY Discharge Medication List Alpha Lipoic Acid 50 mg PO DAILY 05/29/22 [History] Apixaban [Eliquis] 5 mg PO BID 05/29/22 [History] Atorvastatin Calcium [Lipitor] 80 mg PO HS 05/29/22 [History] Cholecalciferol [Vitamin D3 (25 Mcg = 1000 Iu)] 25 mcg PO DAILY 05/29/22 [History] Cyanocobalamin (Vitamin B-12) [Vitamin B-12] 1,000 mcg PO DAILY 05/29/22 [History] Empagliflozin [Jardiance] 10 mg PO DAILY 05/29/22 [History] Ferrous Sulfate [Iron (65 MG Elemental)] 325 mg PO BID 05/29/22 [History] Potassium Chloride ER [K-Dur 10] 10 meq PO DAILY 05/29/22 [History] Tamsulosin HCl [Flomax] 0.4 mg PO DAILY 05/29/22 [History] glipiZIDE [Glucotrol] 5 mg PO DAILY 05/29/22 [History] hydroCHLOROthiazide [Hydrodiuril] 25 mg PO DAILY 05/29/22 [History] lisinopriL [Zestril] 40 mg PO DAILY 05/29/22 [History] metFORMIN HCL [Glucophage] 1,000 mg PO BID 05/29/22 [History] Follow up Appointment(s)/Referral(s): Alejandra Esteves MD [Primary Care Provider] - 1-2 days Patient Instructions/Handouts: Syncope (DC) Activity/Diet/Wound Care/Special Instructions: Please see Cardiology for 30 day event monitor. Discharge Disposition: HOME SELF-CARE
[2022-05-31 14:41] VITALS: BMI 29.7
[2022-05-31 14:52] VITALS: BP 122/75; RESP 20; TEMP 98.2
[2022-05-31 15:22] VITALS: PULSE 58
== END 2022-05-31 16:10 | disposition home or self-care (01) ==
LOC: EC 14:41 → 6NMEDSUR 17:40
PROVIDERS: ADMIT Family Medicine; ATTEND Family Medicine
DX: R55 Syncope and collapse (principal); I48.91 Unspecified atrial fibrillation; I11.0 Hypertensive heart disease with heart failure; I50.9 Heart failure, unspecified; E11.9 Type 2 diabetes mellitus without complications; F41.9 Anxiety disorder, unspecified; N40.0 Benign prostatic hyperplasia without lower urinary tract symptoms; E78.5 Hyperlipidemia, unspecified; I45.10 Unspecified right bundle-branch block; M50.30 Other cervical disc degeneration, unspecified cervical region; I08.3 Combined rheumatic disorders of mitral, aortic and tricuspid valves; I37.1 Nonrheumatic pulmonary valve insufficiency; Z79.01 Long term (current) use of anticoagulants; Z95.5 Presence of coronary angioplasty implant and graft; Z79.899 Other long term (current) drug therapy; Z79.84 Long term (current) use of oral hypoglycemic drugs; Z80.9 Family history of malignant neoplasm, unspecified
CPT/HCPCS: 96360; 96361; 99285; 36415; 93005; 93306; 93270; 80053; 84443; 83735; 84484; 85025; 85610; 85730; 81001; 83036; 71046; 72125; 70450; G0378 ×3